=== PATIENT | female | born 1985 | race African-American/Black ===

== ENCOUNTER 2019-11-15 17:17 | Emergency (ER) | payer OTHER ==
[2019-11-15 17:47] VITALS: BP 130/86; PULSE 86; TEMP 98.1; BMI 28.8
[2019-11-15] MEDS ORDERED: KETOROLAC TROMETHAMINE 30 MG/1 ML VIAL IM ONE (18:12)
[2019-11-15] MEDS ORDERED: ACETAMINOPHEN 500 MG TABLET (FP) PO ONE (18:13)
[2019-11-15] MEDS ORDERED: KETOROLAC TROMETHAMINE 30 MG/1 ML VIAL ONE (18:33)
[2019-11-15] MEDS ORDERED: ACETAMINOPHEN 500 MG TABLET (FP) ONE (18:37)
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
== END 2019-11-15 21:12 | disposition home or self-care (01) ==
LOC: JER 17:17
PROC: 3E0233Z Introduction of Anti-inflammatory into Muscle, Percutaneous Approach (ICD-10-PCS; principal; 2019-11-15)
DX: M54.5 Low back pain (principal); M25.551 Pain in right hip; M25.562 Pain in left knee; V43.52XA Car driver injured in collision with other type car in traffic accident, initial encounter; Y92.414 Local residential or business street as the place of occurrence of the external cause; Y93.89 Activity, other specified; Y99.8 Other external cause status; Z91.02 Food additives allergy status; Z91.010 Allergy to peanuts
CPT/HCPCS: 70450-TC; 72125-TC; 72131-TC; 72192-TC; 84703; 99282-25

== ENCOUNTER 2023-12-13 18:27 | Emergency (ER) | payer OTHER ==
[2023-12-13 18:37] VITALS: RESP 18; TEMP 98.2; BMI 30.6
[2023-12-13] MEDS ORDERED: TETRACAINE 0.5% HCL 0.6ML DROPPER.BOTTLE OD ONE (20:27)
[2023-12-13] MEDS ORDERED: TETRACAINE 0.5% OPHTH SOLN 2 ML BOTTLE ONE (20:34)
[2023-12-13] MEDS ORDERED: FLUORESCEIN NA 1 EA STRIP ONE (20:34)
[2023-12-13 21:42] VITALS: BP 131/78; PULSE 86
== END 2023-12-13 21:53 | disposition short-term general hospital (02) ==
LOC: JER 18:27
DX: H57.11 Ocular pain, right eye (principal); R51.9 Headache, unspecified
CPT/HCPCS: 99285-25